=== PATIENT | male | born 1990 | race Caucasian/White ===

== ENCOUNTER 2023-02-16 21:48 | Emergency (ER) | payer OTHER ==
[~2023-02-16] VITALS: Ht 167.6 cm; Wt 66.7 kg
[2023-02-16 21:58] VITALS: BP 119/59
--- NOTE | 2023-02-16 22:16 | NUR ---
Patient discharged to home in stable condition. Written and verbal after care instructions given. Patient verbalizes understanding of instruction.
== END 2023-02-16 22:17 ==
LOC: ER 21:50
DX: Z02.89 Encounter for other administrative examinations (principal)